=== PATIENT | male | born 1950 | race Caucasian/White ===

== ENCOUNTER 2018-02-15 18:26 | Inpatient (IN) ==
--- NOTE | 2018-02-15 18:57 | Emergency Department Note ---
Disposition Clinical Impression: Abdominal pain Qualifiers: Abdominal location: right lower quadrant Qualified Code(s): R10.31 - Right lower quadrant pain Disposition: Still a Patient Condition: Good Forms: ED Satisfaction Letter, Work/School Release General Adult HPI - General Chief complaint: ED Abdominal Pain Stated complaint: Hernia Time Seen by Provider: 02/15/18 18:29 Source: patient, EMS Mode of arrival: EMS Limitations: no limitations Nursing Notes Reviewed: Yes Vital Signs Reviewed: Yes - History of Present Illness HPI Narrative: 59-year-old male transferred from the [facility] for concern for strangulate hernia. Patient states for the past 3 weeks he has had worsening right lower quadrant pain. He states that night he sometimes sees bulging in the inguinal area. He went to the [facility] for further evaluation. They are concerned for an incarcerated hernia and transferred him here for further evaluation. Patient denies any chest pain or shortness of breath. Denies any nausea, vomiting or diarrhea with this. Patient denies any recent illnesses or antibiotic use. Denies any fevers. Pain Scale: 2 - Related Data Allergies Allergy/AdvReac Type Severity Reaction Status Date / Time carbamazepine AdvReac Nightmare Verified 02/15/18 18:51 gabapentin AdvReac Nightmare Verified 02/15/18 18:51 phenytoin AdvReac Nightmare Verified 02/15/18 18:51 All systems ED: reviewed and negative except as stated. Gastrointestinal: Reports: abdominal pain Past Medical History - Past Medical History Attestation: Yes The following information was validated with the patient. Medical history: Reports: hypertension Psychiatric history: Reports: anxiety, depression - Social History Smoking Status: Current every day smoker Smokeless Tobacco Status: No Alcohol use: Reports: none Drug use: Reports: none Physical Exam - General Limitations: no limitations General appearance: alert, in no apparent distress - Head Head exam: atraumatic, normocephalic, normal inspection - Eye Eye exam: Present: normal appearance. Absent: scleral icterus, conjunctival injection - ENT ENT exam: normal exam, mucous membranes moist - Neck Neck exam: Present: normal inspection, full ROM. Absent: tenderness, meningismus - Chest Chest inspection: Present: normal inspection, symmetric chest wall rise. Absent : tenderness, rash - Respiratory Respiratory exam: Present: normal lung sounds bilaterally. Absent: respiratory distress, wheezes - Cardiovascular Cardiovascular exam: Present: regular rate, normal rhythm, normal heart sounds - Abdominal Exam Abdominal exam: Present: soft, tenderness. Absent: distention, guarding, rebound Abdominal tenderness: Present: RLQ, mild - Extremities Exam Extremities exam: Present: normal inspection, full ROM - Neurological Exam Neurological exam: Present: alert, oriented X3 - Psychiatric Psychiatric exam: Present: normal affect, normal mood - Skin Skin exam: Present: warm, intact Course Course Narrative: 67-year-old male presenting to the emergency department right lower quadrant pain. On examination patient has no hernia. Unsure of what was on physical exam at the [facility]. Due to this we will obtain basic laboratory analysis and a CT of the abdomen and pelvis. Patient does have history of appendectomy. Patient is alert and oriented 3 in the room with stable vital signs. We will obtain basic labs and CT. Disposition pending results. Patient agrees with this plan. - Reevaluation(s) Reevaluation #1: Patient's laboratory analysis has completed and is within normal limits. CT of abdomen and pelvis pending. We will sign the patient out to Dr. Medeiros at this time pending CT evaluation. If CT is within normal limits most likely discharge back to [facility]. Patient is alert and oriented 3 in the room with stable vital signs. Patient agrees with this plan. Vital Signs Temperature 98.5 F 02/15/18 18:37 Pulse Rate 77 02/15/18 18:37 Respiratory Rate 16 02/15/18 18:37 Blood Pressure 149/87 02/15/18 18:37 O2 Sat by Pulse Oximetry 98 02/15/18 18:37 Temperature 98.5 F 02/15/18 18:37 Pulse Rate 70 02/15/18 20:29 Respiratory Rate 22 02/15/18 20:29 Blood Pressure 135/77 02/15/18 20:29 O2 Sat by Pulse Oximetry 97 02/15/18 20:29 Oxygen Delivery Oxygen Delivery Room Air Medical Decision Making - Lab Data Result diagrams: 02/15/18 19:01 02/15/18 19:01 Lab Results 02/15/18 02/15/18 Range/Units 19:01 19:01 WBC 8.2 (4.3-11.1) K/mcL RBC 5.28 (4.19-5.50) M/mcL Hgb 15.9 (12.9-16.9) g/dL Hct 47.8 (37.5-50.1) % MCV 90.5 (83.0-100.0) fL MCH 30.1 (28.0-33.3) pg MCHC 33.3 (31.6-35.5) g/dL RDW 13.3 (11.5-14.5) % Plt Count 225 (140-400) K/mcL MPV 10.2 (9.4-12.4) fL Immature Gran % 0.2 (0-4) % Seg Neutrophils % 67.4 % Lymphocytes % 21.7 % Monocytes % 8.2 % Eosinophils % 2.0 % Basophils % 0.5 % Neutrophils # 5.5 (1.6-8.9) K/mcL Lymphocytes # 1.8 (0.6-4.6) K/mcL Monocytes # 0.7 (0.0-1.3) K/mcL Eosinophils # 0.2 (0.0-0.6) K/mcL Basophils # 0.0 (0.0-0.2) K/mcL Nucleated RBCs/100 WBC 0.2 H (0) /100 WBC Sodium 138 (136-145) mEq/L Potassium 4.0 (3.5-5.1) mEq/L Chloride 105 (98-107) mEq/L Carbon Dioxide 29 (23-29) mEq/L BUN 10 (8-23) mg/dL Creatinine 1.06 (0.70-1.30) mg/dL Est GFR ( Amer) > 60 (> 60) Est GFR (Non-Af Amer) > 60 (> 60) BUN/Creatinine Ratio 9 (6-26) Glucose 86 (70-105) mg/dL Calculated Osmolality 284 (280-300) Calcium 9.0 (8.6-10.3) mg/dL Total Bilirubin 0.4 (0.3-1.0) mg/dL AST 15 (13-39) Units/L ALT 9 (7-52) Units/L Alkaline Phosphatase 67 (34-104) Units/L Serum Total Protein 6.8 (6.4-8.9) g/dL Albumin 4.1 (3.5-5.7) g/dL Globulin 2.7 (2.4-3.5) g/dL Albumin/Globulin Ratio 1.5 (1.1-2.2) Lipase 50 (11-82) Units/L
--- NOTE | 2018-02-15 19:08 | Emergency Department Note ---
Disposition Clinical Impression: Abdominal pain Qualifiers: Abdominal location: right lower quadrant Qualified Code(s): R10.31 - Right lower quadrant pain Disposition: Still a Patient Condition: Good Forms: ED Satisfaction Letter, Work/School Release Time of Disposition: 19:07 General Adult HPI - General Chief complaint: ED Abdominal Pain Stated complaint: Hernia Time Seen by Provider: 02/15/18 18:29 Source: EMS Limitations: no limitations - History of Present Illness Pain Scale: 2 - Related Data Allergies Allergy/AdvReac Type Severity Reaction Status Date / Time carbamazepine AdvReac Nightmare Verified 02/15/18 18:51 gabapentin AdvReac Nightmare Verified 02/15/18 18:51 phenytoin AdvReac Nightmare Verified 02/15/18 18:51 Past Medical History - Past Medical History Medical history: Reports: hypertension Psychiatric history: Reports: anxiety, depression - Social History Smoking Status: Current every day smoker Smokeless Tobacco Status: No Alcohol use: Reports: none Drug use: Reports: none Physical Exam - General Limitations: no limitations General appearance: alert, in no apparent distress Course - Reevaluation(s) Reevaluation #1: Attestation note I examined this patient and my medical decision-making was reviewed with the MEDICAL OFFICE RECEPTIONIST ASSISTANT/PA/Advanced Practice Nurse/Resident Physician. I agree with the documented findings, disposition and treatment plan as described except to the extent set forth below. ED attending: Patient's emergency medicine resident Dr. KATALINA WILHELM. Please see copy of this note for H&P evaluation and management and ED disposition. We both had independent [id number] time in contact with this patient. Briefly: 67-year-old male was transferred by EMS from the [facility] for concerns of "incarcerated hernia. Elderly gentleman thin we examined in both supine and standing. No signs of indirect or direct hernia but he has inguinal discomfort. No masses or lumps. No reducible masses. Patient will get screening labs and abdominopelvic CT. Disposition pending. Time: 19:06 Vital Signs Temperature 98.5 F 02/15/18 18:37 Pulse Rate 77 02/15/18 18:37 Respiratory Rate 16 02/15/18 18:37 Blood Pressure 149/87 02/15/18 18:37 O2 Sat by Pulse Oximetry 98 02/15/18 18:37 Temperature 98.5 F 02/15/18 18:37 Pulse Rate 81 03/23/18 18:52 Respiratory Rate 12 02/15/18 18:52 Blood Pressure 149/87 02/15/18 18:37 O2 Sat by Pulse Oximetry 98 02/15/18 18:52 Oxygen Delivery Oxygen Delivery Room Air
[2018-02-15 19:36] LABS: Basophils % 0.5 %; Eosinophils # 0.2 K/mcL (0.0-0.6); Hematocrit 47.8 % (37.5-50.1); Hemoglobin 15.9 g/dL (12.9-16.9); Immature Granulocytes % 0.2 % (0-4); Lymphocytes # 1.8 K/mcL (0.6-4.6); Lymphocytes % 21.7 %; Mean Corpuscular HGB Conc 33.3 g/dL (31.6-35.5); Mean Corpuscular Hemoglobin 30.1 pg (28.0-33.3); Mean Corpuscular Volume 90.5 fL (83.0-100.0); Mean Platelet Volume 10.2 fL (9.4-12.4); Monocytes # 0.7 K/mcL (0.0-1.3); Monocytes % 8.2 %; Neutrophils # 5.5 K/mcL (1.6-8.9); Nucleated Red Blood Cells 0.2 /100 WBC (0); Platelet Count 225 K/mcL (140-400); Red Blood Count 5.28 M/mcL (4.19-5.50); Red Cell Distribution Width 13.3 % (11.5-14.5); Segmented Neutrophils % 67.4 %
[2018-02-15 19:56] LABS: Alanine Aminotransferase 9 Units/L (7-52); Albumin 4.1 g/dL (3.5-5.7); Albumin/Globulin Ratio 1.5 (1.1-2.2); Alkaline Phosphatase 67 Units/L (34-104); Aspartate Amino Transferase 15 Units/L (13-39); BUN/Creatinine Ratio 9 (6-26); Bilirubin,Total 0.4 mg/dL (0.3-1.0); Blood Urea Nitrogen 10 mg/dL (8-23); Carbon Dioxide 29 mEq/L (23-29); Chloride 105 mEq/L (98-107); Globulin 2.7 g/dL (2.4-3.5); Glucose 86 mg/dL (70-105); Lipase 50 Units/L (11-82); Osmolality,Calculated 284 (280-300); Sodium 138 mEq/L (136-145); Total Protein 6.8 g/dL (6.4-8.9); eGFR For African Americans > 60 (> 60); eGFR For Non-African Americans > 60 (> 60)
[2018-02-15] MEDS ORDERED: *HR* Labetalol 100 MG/20 ML MDV IVP ONE (21:12)
--- NOTE | 2018-02-15 21:25 | Emergency Department Note ---
Disposition Clinical Impression: Abdominal aortic aneurysm (AAA) 3.0 cm to 5.5 cm in diameter in male Abdominal pain Qualifiers: Abdominal location: right lower quadrant Qualified Code(s): R10.31 - Right lower quadrant pain Disposition: Admitted As Inpatient Condition: Good Abdominal Pain HPI - General Chief Complaint: ED Abdominal Pain Stated Complaint: Hernia Time Seen by Provider: 02/15/18 18:29 Source: patient, EMS Mode of arrival: EMS Limitations: no limitations Nursing Notes Reviewed: Yes Vital Signs Reviewed: Yes - History of Present Illness Pain Scale: 2 - Related Data Home Medications Medication Instructions Recorded Confirmed No Known Home Drugs 02/15/18 02/15/18 Allergies Allergy/AdvReac Type Severity Reaction Status Date / Time carbamazepine AdvReac Nightmare Verified 02/15/18 18:51 gabapentin AdvReac Nightmare Verified 02/15/18 18:51 phenytoin AdvReac Nightmare Verified 02/15/18 18:51 Gastrointestinal: Reports: abdominal pain Abdominal Pain PMH - Past Medical History Medical history: Reports: hypertension Male Surgical History: Reports: herniorrhaphy, orthopedic, other, other Psychiatric history: Reports: anxiety, depression - Social History Smoking status: Current every day smoker Alcohol use: Reports: none Drug use: Reports: none Physical Exam - General Limitations: no limitations General appearance: alert, in no apparent distress Course Vital Signs Temperature 98.5 F 02/15/18 18:37 Pulse Rate 77 02/15/18 18:37 Respiratory Rate 16 02/15/18 18:37 Blood Pressure 149/87 02/15/18 18:37 O2 Sat by Pulse Oximetry 98 02/15/18 18:37 Temperature 97.7 F 02/16/18 11:07 Pulse Rate 84 02/16/18 11:07 Respiratory Rate 20 02/16/18 11:07 Blood Pressure 103/74 02/16/18 11:07 O2 Sat by Pulse Oximetry 96 02/16/18 11:07 Oxygen Delivery Oxygen Delivery Room Air Abdominal Pain - MDM Narrative Medical decision making narrative: I, Jensen Medeiros, examined this patient and my medical decision-making was reviewed with the COMPOSITION TEACHER/PA/Advanced Practice Nurse/Resident Physician. I agree with the documented findings, disposition and treatment plan as described except to the extent set forth below. 67-year-old male received in sign out at [address] of the abdomen and pelvis with further evaluation and disposition. Patient was sent to the emergency department from the [place] for further evaluation of a possible strangulated hernia. Patient states he has had pain in the periumbilical right lower quadrant area over the past 3 weeks however became significantly worse within the past [address] of the abdomen and pelvis showed an enlarged abdominal aortic aneurysm with concerns of a mural thrombus versus dissection versus ventral periaortic hemorrhage with impending rupture as well as right inguinal hernia without evidence of small bowel obstruction or strangulation. Radiologist recommended evaluation by surgery. I spoke with Dr. Bonner who reviewed the patient's case and recommended admission to the hospital with evaluation in the morning as patient was hemodynamically stable, pain had been present for multiple hours and patient had not deteriorated. I put patient on labetalol while awaiting further evaluation. Patient comfortable with this plan. Patient admitted for further care and observation. Patient CT was not an angiogram and Dr. Bonner recommended repeat CT in the a.m. as CT angiogram of the abdomen and pelvis for further clarification of the patient's anatomic abnormality. - Lab Data Result diagrams: 02/16/18 04:46 02/16/18 04:46 Lab Results 02/15/18 02/15/18 02/15/18 Range/Units 19:01 19:01 22:52 WBC 8.2 (4.3-11.1) K/mcL RBC 5.28 (4.19-5.50) M/mcL Hgb 15.9 (12.9-16.9) g/dL Hct 47.8 (37.5-50.1) % MCV 90.5 (83.0-100.0) fL MCH 30.1 (28.0-33.3) pg MCHC 33.3 (31.6-35.5) g/dL RDW 13.3 (11.5-14.5) % Plt Count 225 (140-400) K/mcL MPV 10.2 (9.4-12.4) fL Immature Gran % 0.2 (0-4) % Seg Neutrophils % 67.4 % Lymphocytes % 21.7 % Monocytes % 8.2 % Eosinophils % 2.0 % Basophils % 0.5 % Neutrophils # 5.5 (1.6-8.9) K/mcL Lymphocytes # 1.8 (0.6-4.6) K/mcL Monocytes # 0.7 (0.0-1.3) K/mcL Eosinophils # 0.2 (0.0-0.6) K/mcL Basophils # 0.0 (0.0-0.2) K/mcL Nucleated RBCs/100 WBC 0.2 H (0) /100 WBC PT (9.4-12.1) Seconds INR Sodium 138 (136-145) mEq/L Potassium 4.0 (3.5-5.1) mEq/L Chloride 105 (98-107) mEq/L Carbon Dioxide 29 (23-29) mEq/L BUN 10 (8-23) mg/dL Creatinine 1.06 (0.70-1.30) mg/dL Est GFR ( Amer) > 60 (> 60) Est GFR (Non-Af Amer) > 60 (> 60) BUN/Creatinine Ratio 9 (6-26) Glucose 86 (70-105) mg/dL Calculated Osmolality 284 (280-300) Calcium 9.0 (8.6-10.3) mg/dL Total Bilirubin 0.4 (0.3-1.0) mg/dL Direct Bilirubin (0.0-0.2) mg/dL Indirect Bilirubin (0.0-1.2) mg/dL AST 15 (13-39) Units/L ALT 9 (7-52) Units/L Alkaline Phosphatase 67 (34-104) Units/L Serum Total Protein 6.8 (6.4-8.9) g/dL Albumin 4.1 (3.5-5.7) g/dL Globulin 2.7 (2.4-3.5) g/dL Albumin/Globulin Ratio 1.5 (1.1-2.2) Lipase 50 (11-82) Units/L Blood Type B POSITIVE Antibody Screen NEGATIVE 02/15/18 02/16/18 02/16/18 Range/Units 22:52 04:46 04:46 WBC 10.5 (4.3-11.1) K/mcL RBC 5.32 (4.19-5.50) M/mcL Hgb 15.8 (12.9-16.9) g/dL Hct 47.7 (37.5-50.1) % MCV 89.7 (83.0-100.0) fL MCH 29.7 (28.0-33.3) pg MCHC 33.1 (31.6-35.5) g/dL RDW 13.2 (11.5-14.5) % Plt Count 247 (140-400) K/mcL MPV 9.8 (9.4-12.4) fL Immature Gran % 0.5 (0-4) % Seg Neutrophils % 69.6 % Lymphocytes % 21.0 % Monocytes % 6.9 % Eosinophils % 1.6 % Basophils % 0.4 % Neutrophils # 7.3 (1.6-8.9) K/mcL Lymphocytes # 2.2 (0.6-4.6) K/mcL Monocytes # 0.7 (0.0-1.3) K/mcL Eosinophils # 0.2 (0.0-0.6) K/mcL Basophils # 0.0 (0.0-0.2) K/mcL Nucleated RBCs/100 WBC (0) /100 WBC PT 12.8 H (9.4-12.1) Seconds INR 1.2 Sodium 136 (136-145) mEq/L Potassium 4.3 (3.5-5.1) mEq/L Chloride 106 (98-107) mEq/L Carbon Dioxide 24 (23-29) mEq/L BUN 10 (8-23) mg/dL Creatinine 0.91 (0.70-1.30) mg/dL Est GFR ( Amer) > 60 (> 60) Est GFR (Non-Af Amer) > 60 (> 60) BUN/Creatinine Ratio 11 (6-26) Glucose 99 (70-105) mg/dL Calculated Osmolality 281 (280-300) Calcium 9.0 (8.6-10.3) mg/dL Total Bilirubin (0.3-1.0) mg/dL Direct Bilirubin (0.0-0.2) mg/dL Indirect Bilirubin (0.0-1.2) mg/dL AST (13-39) Units/L ALT (7-52) Units/L Alkaline Phosphatase (34-104) Units/L Serum Total Protein (6.4-8.9) g/dL Albumin (3.5-5.7) g/dL Globulin (2.4-3.5) g/dL Albumin/Globulin Ratio (1.1-2.2) Lipase (11-82) Units/L Blood Type Antibody Screen 02/16/18 Range/Units 04:46 WBC (4.3-11.1) K/mcL RBC (4.19-5.50) M/mcL Hgb (12.9-16.9) g/dL Hct (37.5-50.1) % MCV (83.0-100.0) fL MCH (28.0-33.3) pg MCHC (31.6-35.5) g/dL RDW (11.5-14.5) % Plt Count (140-400) K/mcL MPV (9.4-12.4) fL Immature Gran % (0-4) % Seg Neutrophils % % Lymphocytes % % Monocytes % % Eosinophils % % Basophils % % Neutrophils # (1.6-8.9) K/mcL Lymphocytes # (0.6-4.6) K/mcL Monocytes # (0.0-1.3) K/mcL Eosinophils # (0.0-0.6) K/mcL Basophils # (0.0-0.2) K/mcL Nucleated RBCs/100 WBC (0) /100 WBC PT (9.4-12.1) Seconds INR Sodium (136-145) mEq/L Potassium (3.5-5.1) mEq/L Chloride (98-107) mEq/L Carbon Dioxide (23-29) mEq/L BUN (8-23) mg/dL Creatinine (0.70-1.30) mg/dL Est GFR ( Amer) (> 60) Est GFR (Non-Af Amer) (> 60) BUN/Creatinine Ratio (6-26) Glucose (70-105) mg/dL Calculated Osmolality (280-300) Calcium (8.6-10.3) mg/dL Total Bilirubin 0.7 (0.3-1.0) mg/dL Direct Bilirubin 0.2 (0.0-0.2) mg/dL Indirect Bilirubin 0.5 (0.0-1.2) mg/dL AST 16 (13-39) Units/L ALT 9 (7-52) Units/L Alkaline Phosphatase 67 (34-104) Units/L Serum Total Protein 6.7 (6.4-8.9) g/dL Albumin 4.0 (3.5-5.7) g/dL Globulin 2.7 (2.4-3.5) g/dL Albumin/Globulin Ratio 1.5 (1.1-2.2) Lipase (11-82) Units/L Blood Type Antibody Screen
--- NOTE | 2018-02-15 22:09 | Internal Med History&Physical ---
<Maria Alejandra Wakefield - Last Filed: 02/15/18 23:55> Date of Encounter: 02/15/18 Time of Encounter: 22:07 (') Assessment and Plan (1) Aneurysm of infrarenal abdominal aorta Current visit: Yes Status: Acute 67 y M presenting with R groin pain and CT abdomen/Pelvis CT in ED demonstrated infrarenal abdominal aortic aneurysm, possibly concerning for intramural hematoma versus para-aortic hemorrhage with impending full-blown rupture. Infrarenal abdominal aortic aneurysm that measures up to [address] Bonner consulted. Vital signs stable. Hemoglobin - 15.9 Plan for placement of peripheral IV for medication and IV fluid administration Close monitoring of vital signs, cardiac monitoring. Type and Screen CBC, BMP, PT/INR Pain management Further plan, per attending note (2) Hernia of abdominal wall Current visit: Yes Status: Acute Pt presenting with R groin pain, with CT demonstrating right inguinal hernia containing a few collapsed loops of small bowel. Will consult surgery for evaluation. (3) HTN (hypertension) Current visit: Yes Status: Chronic Close monitoring of vital signs given current condition. B-cari for maintenance of BP Qualifiers: Hypertension type: essential hypertension Qualified Code(s): I10 - Essential (primary) hypertension (4) Tobacco dependence Current visit: Yes Status: Chronic Nicotine patch prn. Smoking cessation strongly encouraged. (5) Trigeminal neuralgia Current visit: Yes Status: Chronic Treat recurrent attacks, as needed following evaluation. Carbamazepine allergy noted. (6) DVT prophylaxis Current visit: Yes Status: Acute Lovenox 40 mg qD Internal Medicine - H&P: HPI Chief complaint: Abdominal Pain Admitted From: Emergency Dept History of present illness: Mr. Kuhn is a 67 year old male smoker with HTN presenting with periumbilical right lower quadrant area over the past 3 weeks however became significantly worse within the past 24 hours. Endorses R groin pain x "a couple days" and constipation. Patient was sent to the emergency department from the [place] for further evaluation. Pt hemodynamically stable on arrival. Pt denies N/V, back pain, flank pain, cough, wheezing. Endorses being able to walk without difficulty. Past Med Surg Social Fam HX - Past Medical History Medical history: hypertension Psychiatric history: anxiety, depression - Social History Smoking Status: Current every day smoker Smokeless Tobacco Status: No Alcohol use: none Drug use: none Internal Medicine - H&P: Meds No Known Home Drugs 02/15/18 [History] 3 Allergy/AdvReac Type Severity Reaction Status Date / Time carbamazepine AdvReac Nightmare Verified 02/15/18 18:51 gabapentin AdvReac Nightmare Verified 02/15/18 18:51 phenytoin AdvReac Nightmare Verified 02/15/18 18:51 All Systems PM: A 10-system review of systems was performed and is negative for pertinent findings except as documented above in the HPI. - EENT Additional comments: chronic tinnitus - Cardiovascular Cardiovascular ROS IM: lightheadedness, no chest pain, no claudication - Gastrointestinal Gastrointestinal: abdominal pain - Constitutional Vitals: Temp Pulse Resp BP Pulse Ox 98.5 F 65 22 102/65 97 02/15/18 18:37 02/15/18 21:29 02/15/18 20:29 02/15/18 21:29 02/15/18 20:29 General appearance: Present: cooperative, A&O X 3, no acute distress - Head Head exam: Present: atraumatic, normocephalic - Respiratory Respiratory exam: Absent: accessory muscle use, chest wall tenderness, rales, respiratory distress Additional comments: Breath sounds, equal bilaterally. - Cardiovascular Cardiovascular exam: Present: RRR, +S1, +S2. Absent: tachycardia - GI/Abdominal GI/Abdominal exam: Present: hypoactive bowel sounds, tenderness. Absent: distended Additional comments: No periumbilical echymosis. No flank echymosis. - Extremities Exam Extremities exam: Absent: mottling Additional comments: Dorsalis pedis +1 bilaterally. No blue-lizeth discoloration seen in toes b/l. Internal Med - H&P Results - Labs CBC & Chem 7: 02/15/18 19:01 02/15/18 19:01 - Impressions ITS Impressions Abdomen/Pelvis CT 02/15/18 18:46 IMPRESSION: Infrarenal abdominal aortic aneurysm with abnormal hyperdensity ventral to the aneurysm worrisome for intramural hematoma versus para-aortic hemorrhage with impending full-blown rupture. Additional nonemergent findings as detailed above. Case discussed with Dr. Medeiros at 9:02 p.m. on 02/15/2018. RECOMMENDATIONS: Immediate surgical consultation. D/ / Bjorn Oliver MD / Bjorn Oliver MD Interpreting Provider: Bjorn Oliver MD <Kelle Mckinney - Last Filed: 02/16/18 01:04> Date of Encounter: 02/16/18 Internal Medicine - H&P: HPI History of present illness: Mr. Kuhn is a 67 year old male All Systems PM: A 10-system review of systems was performed and is negative for pertinent findings except as documented above in the HPI. - Constitutional Vitals: Temp Pulse Resp BP Pulse Ox 98.2 F 67 19 139/90 95 02/15/18 22:40 02/15/18 23:00 02/15/18 22:40 02/15/18 22:40 02/15/18 22:40 Internal Med - H&P Results - Labs CBC & Chem 7: 02/15/18 19:01 02/15/18 19:01 - Attending Attestation I examined this patient and my medical decision-making was reviewed with the Resident Physician. I agree with the documented findings, disposition and treatment plan as described except to the extent set forth below.
[2018-02-15] MEDS ORDERED: Naloxone 0.4 MG/ML INJ IVP PRN (22:29)
[2018-02-15 23:17] LABS: INR 1.2; Prothrombin Time 12.8 Seconds (9.4-12.1)
[2018-02-15] MEDS ORDERED: Acetaminophen 325 MG TABLET PO PRN (23:38)
[2018-02-15] MEDS ORDERED: *HR* OxyCODONE Immed Rel 5 MG TABLET PO PRN (23:38)
[2018-02-15] MEDS ORDERED: *HR* HYDROcodone/Acet 5/325 mg TABLET PO PRN (23:38)
[2018-02-15] MEDS ORDERED: 0.9 % Sodium Chloride 1,000 ML IVC SCH (23:45)
[2018-02-16] MEDS: Nicotine 21 MG PATCH.TD24 TD SCH ×2 (00:41→07:53)
[2018-02-16 04:58] LABS: Basophils % 0.4 %; Eosinophils # 0.2 K/mcL (0.0-0.6); Eosinophils % 1.6 %; Hematocrit 47.7 % (37.5-50.1); Hemoglobin 15.8 g/dL (12.9-16.9); Immature Granulocytes % 0.5 % (0-4); Lymphocytes # 2.2 K/mcL (0.6-4.6); Mean Corpuscular HGB Conc 33.1 g/dL (31.6-35.5); Mean Corpuscular Hemoglobin 29.7 pg (28.0-33.3); Mean Corpuscular Volume 89.7 fL (83.0-100.0); Mean Platelet Volume 9.8 fL (9.4-12.4); Monocytes # 0.7 K/mcL (0.0-1.3); Monocytes % 6.9 %; Neutrophils # 7.3 K/mcL (1.6-8.9); Platelet Count 247 K/mcL (140-400); Red Blood Count 5.32 M/mcL (4.19-5.50); Red Cell Distribution Width 13.2 % (11.5-14.5); Segmented Neutrophils % 69.6 %
[2018-02-16 05:18] LABS: Albumin/Globulin Ratio 1.5 (1.1-2.2); Bilirubin,Direct 0.2 mg/dL (0.0-0.2); Bilirubin,Indirect 0.5 mg/dL (0.0-1.2); Bilirubin,Total 0.7 mg/dL (0.3-1.0); Globulin 2.7 g/dL (2.4-3.5); Total Protein 6.7 g/dL (6.4-8.9)
[2018-02-16 05:20] LABS: BUN/Creatinine Ratio 11 (6-26); Blood Urea Nitrogen 10 mg/dL (8-23); Carbon Dioxide 24 mEq/L (23-29); Chloride 106 mEq/L (98-107); Glucose 99 mg/dL (70-105); Osmolality,Calculated 281 (280-300); Potassium 4.3 mEq/L (3.5-5.1); Sodium 136 mEq/L (136-145); eGFR For African Americans > 60 (> 60); eGFR For Non-African Americans > 60 (> 60)
[2018-02-16] MEDS ORDERED: *HR* Enoxaparin 40 MG/0.4 ML SYRINGE SQ SCH (06:00)
--- NOTE | 2018-02-16 08:09 | Internal Med Progress Note ---
<Keshawn Cline - Last Filed: 02/16/18 11:16> Date of Encounter: 02/16/18 Time of Encounter: 08:20 - Assessment and plan (1) Aneurysm of infrarenal abdominal aorta Status: Acute Assessment and plan: CT scan of the abdomen and pelvis yesterday revealed a 4 x 4.5 cm infrarenal abdominal aortic aneurysm that is pending rupture. Patient currently hemodynamically stable at this time. The [facility] surgeon Dr. Anne has recommended obtaining a CT angiogram of the abdomen and pelvis today. I have ordered that to further delineate the anatomy of the aortic aneurysm. Patient does have palpable pulsating mass in the abdomen. Patient, however, is not tender in that area. He is more tender in the right lower quadrant where there is a present inguinal hernia that I cannot palpate. At this time, I do not think that his abdominal aortic aneurysm is causing his symptoms, however, with the findings on her radiology exam and with patient reporting that the aneurysm has grown significantly, I do take that this warrants further evaluation and possible operative consideration. -CTA of the abdomen and pelvis -Follow recommendations from vascular surgery -Monitor vital signs and monitor patient very closely -Patient's blood type is B+ (2) Right inguinal hernia Status: Acute Assessment and plan: Patient has right inguinal hernia that is not incarcerated or reveals any evidence of gangrene. Patient is tender there up on abdominal exam. General surgery has been a consulted. Appreciate recommendations from them. (3) Abdominal pain Status: Acute Assessment and plan: See above (4) HTN (hypertension) Status: Chronic Assessment and plan: Patient's blood pressures are currently within normal limits. Last reading was 105/73. Qualifiers: Hypertension type: essential hypertension Qualified Code(s): I10 - Essential (primary) hypertension (5) Tobacco dependence Status: Chronic (6) DVT prophylaxis Status: Acute Assessment and plan: Currently on SCDs as this patient has a high risk for bleeding with the results of his CT of the abdomen and pelvis yesterday. - Subjective Interval history: This is a 67-year-old male past medical history of smoking, coronary artery disease, hypertension presents to the emergency department yesterday after having worsening right lower quadrant abdominal pain for last 2 weeks. Notices it hurting him worse at night. Patient was sent from the [place] for evaluation for possible hernia. CT scan of the abdomen and pelvis without contrast revealed infrarenal abdominal aortic aneurysm with abnormal hyperdensity ventral to the aneurysm worrisome for intramural hematoma versus para-aortic hemorrhage with impending full-blown rupture. Patient was admitted to the hospital and Dr. Anne was consulted regarding the case. He recommended obtaining a CTA of the abdomen and pelvis to further delineate the aneurysm. Patient only complaining of right lower quadrant abdominal pain at this time. He denies any chest pain, pressure, tightness, abdominal pain anywhere else. He denies any radiation anywhere. He denies any numbness, tingling, paresthesias of the lower extremities. He does admit to having a headache that is typical of his normal headaches. Patient had no events overnight. Abdomen/Pelvis CT 02/15/18 18:46 IMPRESSION: Infrarenal abdominal aortic aneurysm with abnormal hyperdensity ventral to the aneurysm worrisome for intramural hematoma versus para-aortic hemorrhage with impending full-blown rupture. Additional nonemergent findings as detailed above. Case discussed with Dr. Medeiros at 9:02 p.m. on 02/15/2018. RECOMMENDATIONS: Immediate surgical consultation. D/ / Bjorn Oliver MD / Bjorn Oliver MD Interpreting Provider: Bjorn Oliver MD - Constitutional Vitals: Temp Pulse Resp BP Pulse Ox 98.4 F 90 18 105/73 94 02/16/18 07:32 02/16/18 07:32 02/16/18 07:32 02/16/18 07:32 02/16/18 07:32 General appearance: Present: cooperative, A&O X 3, no acute distress - Head Head exam: Present: atraumatic, normal inspection - Neck Neck exam general surgery: Present: full ROM, trachea midline. Absent: lymphadenopathy - Respiratory Respiratory exam: Present: CTAB - Cardiovascular Cardiovascular exam: Present: RRR, +S1, +S2. Absent: JVD - GI/Abdominal GI/Abdominal exam: Present: mass (Midline pulsating mass), soft. Absent: rebound Additional comments: No palpable hernia in the right lower quadrant, but does have tenderness to palpation there that is mild in nature. - Extremities Exam Extremities exam: Absent: calf tenderness, pedal edema - Neurological Exam Neurological exam: Present: CN II-XII intact, oriented X3 Internal Medicine: Result - Labs CBC & Chem 7: 02/16/18 04:46 02/16/18 04:46 - ABG Interpretation ABG results: PT/INR, D-dimer PT 12.8 Seconds (9.4-12.1) H 02/15/18 22:52 Consult Discharge Plan - Plan Instructions: Abdominal Aortic Aneurysm (GEN), Inguinal Hernia (GEN) Additional Instructions: Schedule follow-up for CT scan in 6 months with vascular surgery. Follow-up by calling to schedule an appointment with general surgery to have follow-up for your inguinal hernia. Schedule appointment for follow-up with your primary care provider in the next 7 days. Return to the emergency department if you have any worsening of your current symptoms or if you develop any new symptoms. Referrals: Brett Mchugh DO [Partnered Physician] - [facility],PC[facility] [Primary Care Provider] - Adan Bonner MD [Partnered Physician] - <Aguila Kamara - Last Filed: 02/16/18 18:16> Date of Encounter: 02/16/18 - Assessment and plan (1) Abdominal aortic aneurysm (AAA) 3.0 cm to 5.5 cm in diameter in male Status: Chronic (2) Abdominal pain Status: Acute Qualifiers: Abdominal location: right lower quadrant Qualified Code(s): R10.31 - Right lower quadrant pain (3) Right inguinal hernia Status: Acute (4) HTN (hypertension) Status: Chronic Qualifiers: Hypertension type: essential hypertension Qualified Code(s): I10 - Essential (primary) hypertension (5) Tobacco abuse Status: Chronic (6) Trigeminal neuralgia Status: Chronic - Constitutional Vitals: Temp Pulse Resp BP Pulse Ox 97.7 F 84 20 103/74 96 02/16/18 11:07 02/16/18 11:07 02/16/18 11:07 02/16/18 11:07 02/16/18 11:07 Internal Medicine: Result - Labs CBC & Chem 7: 02/16/18 04:46 02/16/18 04:46 - ABG Interpretation ABG results: PT/INR, D-dimer PT 12.8 Seconds (9.4-12.1) H 02/15/18 22:52 - Attending Attestation Please see discharge summary of this date.
--- NOTE | 2018-02-16 09:40 | Vascular/Endovasc Consult Note ---
Date of Encounter: 02/16/18 Time of Encounter: 09:00 Assessment and Plan (1) Aneurysm of infrarenal abdominal aorta Current Visit: Yes Status: Acute Patient has an asymptomatic abdominal aortic aneurysm. I reviewed with the patient the potential risk factors. I stressed the need for complete tobacco cessation. I've asked the patient to return to see me in 6 months with a follow- up CT scan. All questions were answered. Recommend low-dose chronic beta blockade therapy and antilipid statin therapy. (2) HTN (hypertension) Current Visit: Yes Status: Chronic Relationship of hypertension to formation of aneurysm was discussed with the patient. Qualifiers: Hypertension type: essential hypertension Qualified Code(s): I10 - Essential (primary) hypertension (3) Tobacco dependence Current Visit: Yes Status: Chronic Relationship of tobacco abuse 2 formation and expansion of the aneurysm was discussed with the patient. Need for complete tobacco cessation was emphasized with the patient. (4) Trigeminal neuralgia Current Visit: Yes Status: Chronic Patient is status post left parotidectomy with postoperative complications of headache and trigeminal dysfunction as well as gustatory sweating. - History of Present Illness Consult date: 02/16/18 Consult reason: AAA Chief complaint: right groin pain History of present illness: Mr. Kuhn is a 67 year old male Was admitted via the ER upon referral from the MD last night. The patient complains of about a 3 week history of abdominal and right groin pain. The patient states during this time he had developed significant constipation. In order to further evaluate him a CT scan was performed through the ER last night which demonstrated a 4.4 cm abdominal aortic aneurysm. There is some concern on the radiologic interpretation about the characteristic of the aneurysm and so therefore vascular surgery was called last night. I reviewed the CT scan personally last night and found that the patient has inflammatory changes on the anterior surface of the aneurysm but there is no finding of retroperitoneal hematoma or leak or contained rupture. The patient's symptoms do not correlate with an abdominal aortic aneurysm. One of the other findings on the CT scan was that of a right inguinal hernia which is more consistent with his symptoms. He does have a small bowel loop in the right groin area. The patient's vital signs and laboratory values have remained stable from last night to this morning. The patient otherwise has no abdominal or groin complaints today and is feeling better than yesterday. He does have a headache which is a chronic problem for him dating back to the time of his left parotidectomy. The patient has no knowledge of any family history of abdominal aortic aneurysms. He states that he had had ultrasounds performed in the past where one had demonstrated an aneurysm and then a second one had demonstrated no abdominal aortic aneurysm. He was told he needed a repeat study but has not yet had that performed. The studies were by ultrasound. The patient does have risk factors of hypertension and tobacco abuse and his gender and age for aneurysm formation. Past Med Surg Social Fam HX - Past Medical History Medical history: hypertension Psychiatric history: anxiety, depression - Past Surgical History Surgical History: herniorrhaphy (Status post ventral hernia repair in 2009 in [place].), other (Status post left parotidectomy in 2008. Complicated by postoperative trigeminal nerve injury and post prandial gustatory sweating.) - Social History Smoking Status: Current every day smoker Smokeless Tobacco Status: No Alcohol use: none Drug use: none Medications and Allergies No Known Home Drugs 02/15/18 [History] 3 Allergy/AdvReac Type Severity Reaction Status Date / Time carbamazepine AdvReac Nightmare Verified 02/15/18 18:51 gabapentin AdvReac Nightmare Verified 02/15/18 18:51 phenytoin AdvReac Nightmare Verified 02/15/18 18:51 All Systems Review: The remainder of the systems were reviewed and are negative Exam General: Present: Conversant, No Apparent Distress, Well developed, Well nourished HEENT: Present: Trachea midline, Other (Atrophy of left preauricular area consistent with previous parotidectomy. Well-healed surgical scar. No active gustatory sweating on physical exam this morning.) Neck: Absent: JVD, Lymphadenopathy, Left Carotid bruit, Right Carotid bruit, Midline deformity, Tracheal deviation Cardiac: Present: Reg Rate and Rhythm, Normal S1 and S2, No Murmur Lungs: Present: Normal Breath Sounds, No Wheeze, Rales, Rhonchi Neuro: Present: Alert and responsive, No focal deficits noted, Motor nerves grossly intact, Sensory nerves grossly intact Abdomen: Present: Soft, Other (Patient's abdomen is sensitive but there are no peritoneal findings. There is no discoloration of the periumbilical or flank region. There are no abdominal bruits. Patient has active bowel sounds. Patient has a surgical scar oriented in a vertical midline in the supraumbilical area. Palpation of the groin for hernia was difficult as the patient is very sensitive in the groin region bilaterally. There are no obvious masses in the groin. There is no skin discoloration.). Absent: Masses Vascular: Present: Normal capillary refill, Pulse, normal, Color/Temperature ( Color and temperature of feet and toes is normal. No findings of distal embolization.). Absent: Bruit, Clubbing, Cyanosis, Edema, Surgical incisions, Amputation(s) Skin: Present: No rashes noted on visualized skin Musculoskeletal: Present: No Chest Wall Tenderness Consult Discharge Plan - Plan [facility]errals: [facility] [Primary Care Provider[facility] -
[2018-02-16 11:10] VITALS: BP 103/74
--- NOTE | 2018-02-16 13:42 | General Surgery Consult Note ---
<Brady Carbajal - Last Filed: 02/16/18 13:33> Date of Encounter: 02/16/18 Time of Encounter: 09:45 Assessment and Plan (1) Right inguinal hernia Status: Acute CT of abdomen and pelvis on 02/15/2018 shows right inguinal hernia containing a few collapsed loops of small bowel and infrarenal abdominal aortic aneurysm that measures up to 4 x 4.4 cm in diameter. Hernia is reducible. Recommended the patient follow-up with Dr. Mchugh on an outpatient basis. No surgical intervention at this time. Surgery will sign off at this time. Thank you for allowing surgery to participate in this patient's care. (2) Aneurysm of infrarenal abdominal aorta Status: Acute CT of abdomen and pelvis on 02/15/2018 shows right inguinal hernia containing a few collapsed loops of small bowel and infrarenal abdominal aortic aneurysm that measures up to 4 x 4.4 cm in diameter. Vascular surgery is on board for recommendations. History of Present Illness Consult date: 02/16/18 Reason for consult: hernia History of present illness: Mr. Kuhn is a 67 year old male who was admitted through the ER upon referral from the ID on 02/15/2018. The patient complained of abdominal and right groin pain that lasted approximately for 3 weeks. The patient states during this time he had significant constipation. In order to further evaluate him, a CT scan was ordered in the ER last night, which demonstrated a 4.4 cm abdominal aortic aneurysm and right inguinal hernia containing a few collapsed loops of small bowel. Vascular surgeon has also been consulted. Surgery was consulted to evaluate right inguinal hernia. The patient's vital signs and labs have remained stable from last night to this morning. The patient otherwise has no abdominal or groin complaints today and is feeling better than yesterday. The patient admits that the right renal hernia is more prominent when he is constipated. The patient admitted he had a bowel movement this morning without any blood or difficulty. The patient denies any fever, vision changes, near syncope, chest pain, shortness of breath, difficulty breathing, diarrhea, blood in his stool, urinary symptoms, nausea, vomiting, any weaknesses. The patient has no other concerns at this time. Past Med Surg Social Fam HX - Past Medical History Medical history: hypertension Psychiatric history: anxiety, depression - Past Surgical History Surgical History: herniorrhaphy (Status post ventral hernia repair in 2009 in [place].), other (Status post left parotidectomy in 2008. Complicated by postoperative trigeminal nerve injury and post prandial gustatory sweating.) - Social History Smoking Status: Current every day smoker Smokeless Tobacco Status: No Alcohol use: none Drug use: none Medications and Allergies Atorvastatin Calcium [Lipitor] 20 mg PO QDPC #30 tablet 02/16/18 [Rx] Metoprolol XL (24 HR) Succ [Toprol XL] 12.5 mg PO DAILY #30 tab.er.24h 02/16/18 [Rx] 3 Allergy/AdvReac Type Severity Reaction Status Date / Time carbamazepine AdvReac Nightmare Verified 02/15/18 18:51 gabapentin AdvReac Nightmare Verified 02/15/18 18:51 phenytoin AdvReac Nightmare Verified 02/15/18 18:51 Review of Systems All systems PM: The remainder of the systems were reviewed and are negative - Constitutional as per HPI General Surgery Exam Initial Vital Signs Temp Pulse Resp BP Pulse Ox 98.5 F 77 16 149/87 98 02/15/18 18:37 02/15/18 18:37 02/15/18 18:37 02/15/18 18:37 02/15/18 18:37 - General physical appearance well developed, well nourished, no distress - Eyes PERRL, normal ocular movement - ENT normal mucosa - Neck trachea midline - Respiratory normal expansion, normal respiratory effort, clear to auscultation - Cardiovascular Cardiovascular exam: Present: RRR, no murmurs/rubs/gallops - Abdomen Abdomen general surgery: Present: bowel sounds present, soft, tender (Abdomen was nontender to palpation. Right groin area was tender on palpation.). Absent : distended, guarding, rebound Hernia: Present: reducible, inguinal (Reducible right inguinal hernia present on exam.). Absent: incarcerated, strangulated - Integumentary Integumentary general surgery: Present: warm and dry, no abnormal pigmentation - Neurologic Present: CN 2-12 grossly intact - Psychiatric Psychiatric general surgery: Present: appropriate, oriented to person, oriented to place, oriented to time Exam Initial Vital Signs Temp Pulse Resp BP Pulse Ox 98.5 F 77 16 149/87 98 02/15/18 18:37 02/15/18 18:37 02/15/18 18:37 02/15/18 18:37 02/15/18 18:37 Results - Labs 02/16/18 04:46 02/16/18 04:46 Abnormal lab results Nucleated RBCs/100 WBC 0.2 /100 WBC (0) H 02/15/18 19:01 PT 12.8 Seconds (9.4-12.1) H 02/15/18 22:52 All other labs normal. Consult Discharge Plan - Plan Instructions: Abdominal Aortic Aneurysm (GEN), Inguinal Hernia (GEN) Additional Instructions: Schedule follow-up for CT scan in 6 months with vascular surgery. Follow-up by calling to schedule an appointment with general surgery to have follow-up for your inguinal hernia. Schedule appointment for follow-up with your primary care provider in the next 7 days. Return to the emergency department if you have any worsening of your current symptoms or if you develop any new symptoms. Referrals: Brett Mchugh DO [Partnered Physician] - [facility] [Primary Care Provider] - Adan Bonner MD [Partnered Physician] - <Brett Mchugh - Last Filed: 02/22/18 07:30> Date of Encounter: 02/22/18 Review of Systems All systems PM: The remainder of the systems were reviewed and are negative General Surgery Exam Initial Vital Signs Temp Pulse Resp BP Pulse Ox 98.5 F 77 16 149/87 98 02/15/18 18:37 02/15/18 18:37 02/15/18 18:37 02/15/18 18:37 02/15/18 18:37 Exam Initial Vital Signs Temp Pulse Resp BP Pulse Ox 98.5 F 77 16 149/87 98 02/15/18 18:37 02/15/18 18:37 02/15/18 18:37 02/15/18 18:37 02/15/18 18:37 Results - Labs 02/16/18 04:46 02/16/18 04:46 Abnormal lab results Nucleated RBCs/100 WBC 0.2 /100 WBC (0) H 02/15/18 19:01 PT 12.8 Seconds (9.4-12.1) H 02/15/18 22:52 POC Glucose 125 (58-89) H 02/16/18 11:09 All other labs normal. - Attending Attestation I examined this patient and my medical decision-making was reviewed with the Resident Physician. I agree with the documented findings, disposition and treatment plan as described except to the extent set forth below.
--- NOTE | 2018-02-16 14:29 | Discharge Summary ---
<Keshawn Cline - Last Filed: 02/16/18 15:14> Date of Encounter: 02/16/18 Time of Encounter: 14:25 - Discharge Diagnosis (1) Aneurysm of infrarenal abdominal aorta Priority: Primary Status: Acute (2) Right inguinal hernia Priority: Primary Status: Acute (3) Abdominal pain Priority: Primary Status: Acute (4) HTN (hypertension) Priority: Secondary Status: Chronic Qualifiers: Hypertension type: essential hypertension Qualified Code(s): I10 - Essential (primary) hypertension (5) Tobacco dependence Priority: Secondary Status: Chronic (6) DVT prophylaxis Priority: Secondary Status: Acute Hospital course: Mr. Kuhn is a 67 year old male with a past medical history of smoking, coronary artery disease, hypertension presents to the emergency department yesterday after having worsening right lower quadrant abdominal pain for last 2 weeks. Notices it hurting him worse at night. Patient was sent from the [place] for evaluation for possible hernia. CT scan of the abdomen and pelvis without contrast revealed infrarenal abdominal aortic aneurysm with abnormal hyperdensity ventral to the aneurysm worrisome for intramural hematoma versus para-aortic hemorrhage with impending full-blown rupture. Patient was admitted to the hospital and Dr. Anne was consulted regarding the case. After visiting with the patient, Dr. Anne recommended to have follow-up CT done in 6 months. Patient only complaining of right lower quadrant abdominal pain at this time. He denies any chest pain, pressure, tightness, abdominal pain anywhere else. He denies any radiation anywhere. He denies any numbness, tingling, paresthesias of the lower extremities. He does admit to having a headache that is typical of his normal headaches. Patient had no events overnight. Patient was evaluated by general surgery regarding his inguinal hernia. General surgery recommended follow-up and no interventions at this time as there is no evidence of incarceration at this time. Patient will be discharged from the hospital with follow-up with his primary care provider, general surgery, vascular surgery. I discussed the plan with the patient he was agreeable. Patient currently hemodynamically stable, not in any acute distress. - Time Spent with Patient Total time spent providing and/or coordinating discharge services: - Discharge Medications Home Medications: Atorvastatin Calcium [Lipitor] 20 mg PO QDPC #30 tablet 02/16/18 [Rx] Metoprolol XL (24 HR) Succ [Toprol XL] 12.5 mg PO DAILY #30 tab.er.24h 02/16/18 [Rx] Allergies/Adverse Reactions: 3 Allergy/AdvReac Type Severity Reaction Status Date / Time carbamazepine AdvReac Nightmare Verified 02/15/18 18:51 gabapentin AdvReac Nightmare Verified 02/15/18 18:51 phenytoin AdvReac Nightmare Verified 02/15/18 18:51 Date of admission: 02/16/18 08:02 Primary care physician: PCP [facility] - Constitutional Vitals: Temp Pulse Resp BP Pulse Ox 97.7 F 84 20 103/74 96 02/16/18 11:07 02/16/18 11:07 02/16/18 11:07 02/16/18 11:07 02/16/18 11:07 General appearance: Present: cooperative, A&O X 3, no acute distress - Head Head exam: Present: atraumatic - ENT ENT exam: Present: mucous membranes moist - Neck Neck exam general surgery: Present: trachea midline - Respiratory Respiratory exam: Present: CTAB - Cardiovascular Cardiovascular exam: Present: RRR. Absent: JVD - GI/Abdominal Additional comments: Pulsating palpable mass that is nontender. Mild right lower quadrant tenderness to palpation. - Extremities Exam Extremities exam: Absent: calf tenderness, pedal edema - Patient Status Disposition: Home, Self-Care Condition: Good Overall status at discharge: patient is progressing back to baseline - Discharge Instructions Instructions: Abdominal Aortic Aneurysm (GEN), Inguinal Hernia (GEN) Follow Up With: [place],PCP [Primary Care Provider] - Brett Mchugh DO [Partnered Physician] - Adan Bonner MD [Partnered Physician] - Additional Instructions: Schedule follow-up for CT scan in 6 months with vascular surgery. Follow-up by calling to schedule an appointment with general surgery to have follow-up for your inguinal hernia. Schedule appointment for follow-up with your primary care provider in the next 7 days. Return to the emergency department if you have any worsening of your current symptoms or if you develop any new symptoms. - Diet and Activity Diet: advance to your usual diet <Aguila Kamara - Last Filed: 02/16/18 18:12> Date of Encounter: 02/16/18 - Discharge Diagnosis (1) Abdominal aortic aneurysm (AAA) 3.0 cm to 5.5 cm in diameter in male Priority: Primary Status: Chronic (2) Abdominal pain Status: Acute Qualifiers: Abdominal location: right lower quadrant Qualified Code(s): R10.31 - Right lower quadrant pain (3) Right inguinal hernia Status: Acute (4) HTN (hypertension) Status: Chronic Qualifiers: Hypertension type: essential hypertension Qualified Code(s): I10 - Essential (primary) hypertension (5) Tobacco abuse Priority: Secondary Status: Chronic (6) Trigeminal neuralgia Priority: Secondary Status: Chronic Hospital course: Mr. Kuhn is a 67 year old male - Time Spent with Patient Total time spent providing and/or coordinating discharge services: 29min Date of admission: 02/16/18 08:02 Primary care physician: [facility] - Constitutional Vitals: Temp Pulse Resp BP Pulse Ox 97.7 F 84 20 103/74 96 02/16/18 11:07 02/16/18 11:07 02/16/18 11:07 02/16/18 11:07 02/16/18 11:07 - Attending Attestation I examined this patient and my medical decision-making was reviewed with the Resident Physician on 02/16/18. I agree with the documented findings, disposition and treatment plan as described except to the extent set forth below. Mr Kuhn has been admitted for abdominal pain and concern for unstable abdominal aneurysm. He has been evaluated by vascular surgery and general surgery. He is afebrile at this time. He is ready for discharge home and outpatient follow up. Exam alert Comfortable Mucus membranes dry Heart reg No wheeze Plan D/C home today Pt to have beta cari and statin at discharge. He has stated he won't take any meds or have surgery.
== END 2018-02-16 15:55 | disposition home or self-care (01) | DRG 395 ==
LOC: EMEROO 18:26 → 2NNU 18:26
PROVIDERS: ADMIT Internal Medicine Hematology & Oncology; ATTEND Internal Medicine